=== PATIENT | male | born 2005 | race Caucasian/White ===

== ENCOUNTER 2023-01-09 09:25 | Emergency (ER) | payer BC ==
[2023-01-09] MEDS ORDERED: Fluorescein 1 MG Ophth Strip EYERT ONE (09:53)
[2023-01-09] MEDS ORDERED: Tetracaine HCl/PF 0.5% 4 ML Bottle EYERT ONE (09:53)
[2023-01-09] MEDS ORDERED: Erythromycin Base 0.5% Ophth Oint 3.5 GM Tube EYEBOTH ONE (09:53)
[2023-01-09] MEDS ORDERED: Distilled Water Ophth Irrig Soln 120 ML Bottle EYERT ONE (09:53)
== END 2023-01-09 10:11 | disposition home or self-care (01) ==
LOC: CC.ED 09:25
DX: S05.01XA Injury of conjunctiva and corneal abrasion without foreign body, right eye, initial encounter (principal); Z91.010 Allergy to peanuts; Y99.0 Civilian activity done for income or pay
CPT/HCPCS: 99283; A9270-GY